=== PATIENT | female | born 1940 | race Asian ===

== ENCOUNTER 2017-05-14 21:11 | Emergency (ER) | payer SELFPAY ==
[~2017-05-14] VITALS: Ht 157.5 cm; Wt 73.5 kg
[2017-05-14 21:20] VITALS: BP_SYST 119
[2017-05-14] MEDS ORDERED: ALBUTEROL SULFATE 0.083% 2.5 MG/3 ML VIAL.NEB IH ONE (21:30)
[2017-05-14] MEDS ORDERED: PREDNISONE 20 MG TABLET PO ONE (21:30)
[2017-05-14] MEDS ORDERED: IPRATROPIUM BROM 0.5 MG/2.5 ML VIAL.NEB (ATROVENT) IH ONE (21:30)
[2017-05-14] MEDS ORDERED: ALBU8.5H8 INH (21:32)
[2017-05-14 22:15] VITALS: BP_SYST 129
== END 2017-05-14 22:15 | disposition home or self-care (01) ==
LOC: SED 21:11
DX: J45.901 Unspecified asthma with (acute) exacerbation (principal); Z90.49 Acquired absence of other specified parts of digestive tract; Z79.899 Other long term (current) drug therapy
CPT/HCPCS: 94640; 99283; J7512